=== PATIENT | female | born 1975 | race Caucasian/White ===

== ENCOUNTER 2018-10-07 07:10 | Day surgery (SDC) | payer OTHER, MEDICARE, SELFPAY ==
[2018-09-22 07:49] VITALS: BMI 49.5
[2018-10-07] VITALS (7 sets, daily range): BP systolic 121–149; BP diastolic 74–93; PULSE 77–107; RESP 10–16; TEMP 36.7–37.5; O2SAT 91–100; BMI 49.5
[2018-10-07] MEDS: LACTATED RINGERS 1,000 ML 42 ML IV (08:20)
[2018-10-07] MEDS: CEFAZOLIN 2 GM/100 ML FROZ.PIGGY IV (08:55)
--- NOTE | 2018-10-07 09:23 | SUR.OPER ---
Supine on padded OR bed, head on pillow, arms secured on padded arm boards at <90 degrees abduction, legs uncrossed, safety belt at thigh, tape over blanket over lower legs.
--- NOTE | 2018-10-07 09:24 | SUR.OPER ---
Supine on padded OR bed, on hover mat, head on pillow, arms secured on padded arm boards at <90 degrees abduction, right leg is in a frog position, under control of surgeon, left leg is taped over the blanket to the bed.
[2018-10-07] MEDS: BUPIVACAINE 0.25% (PF) VIAL 30 ML INJ (09:32)
[2018-10-07] MEDS: THROMBIN (RECOMBINANT) 5,000 UNIT VIAL 5000 UNIT TOP (10:23)
--- NOTE | 2018-10-07 10:54 | SUR.OPER ---
Mini C arm time 0.11
--- NOTE | 2018-10-07 11:02 | SUR.OPER ---
Supine on padded OR bed, on hover mat, head on pillow, arms secured on padded arm boards at <90 degrees abduction, right leg is in frog position, under control of surgeon, safety belt at thigh, tape over blanket over left lower leg.
--- NOTE | 2018-10-07 11:21 | PM.PREOP ---
Pre-operative Note Interval Note History & Physical reviewed/Exam performed by Physician: Yes Changes to H&P: No H&P completed within 30 days and has changed as indicated here:: This is a late entry note patient was seen preoperatively in the preop unit approximately 8:30 a.m. prior to surgery where final questions were answered and site of surgery was marked.
--- NOTE | 2018-10-07 11:38 | SUR.PHASEI ---
Pt gradually awake, used bedpan to urinate, 02 placed, and in the process of being weaned down. Report to MYRNA Michelle
--- NOTE | 2018-10-07 11:46 | P.OP_ITS ---
Operative Date/Time/Diagnoses Date of procedure: 10/07/18 Time of procedure: 09:00 Pre-op diagnosis: 1. Tarsal tunnel syndrome, right 2. Plantar fasciitis right foot Post-op diagnosis: same Procedure & Clinicians Procedure: 1. Tarsal tunnel release, right CPT code 89131 2. Partial plantar fascia release, right cpt code 95660 Same procedure as scheduled: Yes Indications: The patient is a 42-year-old female with chronic symptomatic right tarsal tunnel syndrome and plantar fasciitis refractory to conservative treatment with stretching, shoe modifications, inserts and injections. patient has undergone extensive conservative treatment greater than 1 year and has persistent symptoms as well as numbness tingling and a Tinel's along the tarsal tunnel. 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 She has been indicated for a tarsal tunnel release as well as partial plantar fascia release and possible bone spur excision. Risks benefits and alternatives to the procedure were discussed with the patient in detail. patient feels that she has failed non operative treatment and requests surgery. Risks of surgery including infection, bleeding, damage to nerves and blood vessels, tendons, wound dehiscence, persistent pain, DVT, PE, inability to return to her desired level of function, generalized dissatisfaction with the surgical procedure, cardiopulmonary complications and were discussed with the patient. Patient expressed understanding of all risks and elected to proceed. Surgeon: Ayse Christiansen Click Yes if Unassisted: Yes Anesthesia Type: General and Local Operative Notes Findings: The Cural fascia was opened proximally and the tibial nerve was identified and protected underneath the vein. 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 There is also noted to be extremely thickened cural fascia and the thickened flexor retinaculum. the nerve did appear slightly compressed at the proximal edge of the flexor retinaculum. Constricting flexor retinaculum was released. The tibial nerve was traced distally and decompressed with care taken to release the area around the numerous veins but avoid transection or bleeding. Lateral and medial plantar nerve branches were identified and decompressed. The abductor fascia was opened superficially and deep in both tunnels and the septum was identified. the calcaneal branch was also decompressed and protected. Dissection was then taken more plantarly and the medial half of the plantar fascia was released off of the calcaneus. this obtained a good release of the plantar fascia and the bone spur was her not removed to avoid additional bleeding. Closure Type: primary Specimen(s): none sent Estimated Blood Loss (mL): 5 Blood products transfused: none Tourniquet time (min): 80 Procedure in detail: After confirming written informed consent the patient was taken to the operating room and placed on the operating room table. General endotracheal anesthesia was obtained. a tourniquet was placed on the upper aspect of the thigh. All bony prominences were padded and an SCD was placed on contralateral leg. Patient's operative leg was then prepped and draped in the standard sterile fashion. A formal time-out procedure was performed confirming the patient's side and site of surgery and administration of preoperative antibiotics. The presence of informed consent and was a noted. the appropriate operative extremity was then exsanguinated with the Esmarch and the tourniquet was inflated on the thigh to 250 mm of mercury. That time attention was directed to the medial aspect of the right ankle and tarsal tunnel area. the midpoint between the posterior border of the medial m alleolus and the medial border of the Achilles tendon was marked. medial edge of the heel at the soft spot was palpated and marked. the incision was marked over the skin in the course of the tibial nerve. started approximately 6 cm proximal to the medial malleolus and extended distally approximately 1 cm posterior to the tibia. Distally at the level the medial malleolus incision curved anteriorly and then plantar to the soft spot. Sharp dissection was taken down to the skin. The incision was carefully deepened bluntly through subcutaneous tissues to expose the Cural fascia and the flexor retinaculum. The Cural fascia was noted to be extremely thickened. The dissection was focused proximally 1st. Under loupe magnification the Cural fascia was opened. The tibial nerve was identified after the veins were 1st located. These were large and torturous. There was also an extremely thickened flexor retinaculum. The tibial nerve was identified and its course was traced on the flexor retinaculum. This was thickened at the leading edge. And there was a slight hourglass deformity of the tibial nerve at this location. A Brooks was placed underneath the flexor retinaculum as it was incised. Extreme care was taken to avoid the a torturous the venous complex. Bipolar cautery was used for small skin bleeders. The neurovascular bundle was identified and protected. The nerve was decompressed proximally and distally with care to protect the cutaneous branches. The calcaneal branch of the tibial nerve was identified and this was protected. Next the superficial fascia of the abductor hallucis muscle was identified and released and then the muscle was retracted exposing the deep abductor hallucis fascia over the lateral plantar tunnel. This was carefully released completely. Then attention was the turned to decompress the medial plantar tunnel its roof was released and then the septum between the lateral and medial plantar tunnels was identified and the medial plantar tunnel release was completed. The Brooks elevator was used to follow the tibial nerve and its branches confirming nerve decompression. Next attention turned to the partial plantar fascial release the plantar part of the incision was extended slightly and the Kirstin retractors were used to identify the plantar fascia as it inserted onto the calcaneus. This was sharply divided under direct visualization using the scissors. Decision was made to leave the bone spur in place as this is typically not the cause of pain and removal bone could cause additional bleeding or hematoma in the incision. at this time thrombin and Gelfoam was placed for some slight bleeding and hemostasis was achieved and then the tourniquet was released. Hemostasis was confirmed. The wound was irrigated and then closed in layers using a few 3- O vicryl deep and then 4 0 Monocryl and 3 O nylon in the skin. The incision was infiltrated with local anesthetic. Xeroform and gauze was placed. Patient was placed in a bulky dressing and splint. All counts were correct. The patient was woken and then taken to the recovery room in good condition. There no immediate complications from this procedure. Complications: none Condition: stable Disposition: PACU Plan for aftercare: The patient will be predominantly nonweightbearing for incision healing for the next 3-4 weeks as she may put the foot down for balance. She comes for 1st postoperative visit in 2 weeks for sutures removed should be placed into a boot. The patient has an allergy to aspirin. We discussed her risks for DVT in detail other than obesity she does not have any other risk factors of elevated for DVT other than reduced mobility due to the surgery. patient has declined other chemical prophylaxis. We discussed the importance of immobilization and a calf pumps and blood flow facilitating maneuvers. The patient understands and agrees with the plan due to previous bleeding issues she has declined any other chemoprophylaxis or injectable other than a mechanical. Percocet was given for pain medicine at the pt does not tolerate vicodin.
[2018-10-07] MEDS: OXYCODONE/ACETAMINOPHEN 5/325 TABLET 1 TAB PO (11:54)
--- NOTE | 2018-10-07 13:10 | SUR.PHASEII ---
Pt voiced wanting to leave, denied pain, foot remained elevated while here and had no drainage on discharge, Dr Christiansen wrapped 2nd cory wrap to surgical foot while here in phase 2. Prescription changed to percocet per pt request and 's note given w/ d/c paper work. All voiced an understanding of instructions. pt used rest room prior to d/c and was steady when up. pt left in stable condition.
== END 2018-10-07 12:50 | disposition home or self-care (01) ==
PROVIDERS: PCP Internal Medicine; Visit Provider Orthopaedic Surgery Foot and Ankle Surgery
PROC: (CPT 28035; principal; 2018-10-07 08:45)
PROC: (CPT 29893; 2018-10-07 08:45)
DX: G57.51 Tarsal tunnel syndrome, right lower limb (principal); M72.2 Plantar fascial fibromatosis
CPT/HCPCS: 28060; 28035; J0690; J1100; J2250; J2405; J2704; J3010